=== PATIENT | female | born 1950 | race Caucasian/White ===

== ENCOUNTER → 2017-02-15 | Outpatient (CLI) | payer BC, MEDICARE ==
--- NOTE | 2017-02-15 12:56 | MM ---
Reason for exam: screening (asymptomatic). Baseline mammogram. History: Patient is postmenopausal. Implants in both breasts, 1982. Physical Findings: Nurse Summary: a 2cm nodule in the right breast at 3 o'clock (nurse mm). MG 3D Screen Mammo Imp/Cad Bilateral CC, MLO, and ID view(s) were taken. The breast tissue is heterogeneously dense. This may lower the sensitivity of mammography. Bilateral implants with calcifications of right sided implant shell. Buldge is seen medially felt to reflect silicone leak. These results were verbally communicated with the patient and result sheet given to the patient on 02/15/17. ASSESSMENT: Benign, BI-RAD 2 RECOMMENDATION: Routine screening mammogram of both breasts in 1 year. Manage patient on a clinical basis.
== END | disposition home or self-care (01) ==
LOC: RADMAMWWP 10:56
PROVIDERS: ATTEND Family Medicine
DX: Z12.31 Encounter for screening mammogram for malignant neoplasm of breast (principal)
CPT/HCPCS: 77063; G0202

== ENCOUNTER → 2017-09-05 | Outpatient (CLI) | payer MEDICARE ==
--- NOTE | 2017-09-05 16:06 | BD ---
EXAMINATION TYPE: MG DEXA axial skeleton. DATE OF EXAM: 09/05/2017 COMPARISON: NONE CLINICAL HISTORY: post menopausal Height: 5'6 Weight: 116 FRAX RISK QUESTIONS: Alcohol (3 or more units per day): no Family History (Parent hip fracture): no Glucocorticoids (More than 3mos): no (Ex: prednisone, prednisolone, methylprednisolone, dexamethasone, and hydrocortisone). History of Fracture in Adulthood: no Secondary Osteoporosis: 1. Type 1 Diabetes: no 2. Hyperthyroidism: no 3. Menopause before 45: no 4. Malnutrition: no 5. Chronic liver disease: no Rheumatoid Arthritis: no Current Tobacco Use: no RISK FACTORS HISTORY OF: Active: Diet low in dairy products/other sources of calcium: Postmenopausal woman: MEDICATIONS: Additional Medications: Additional History: EXAM MEASUREMENTS: Bone mineral densitometry was performed using the [facility]. Bone mineral density as measured about the Lumbar spine is: ----- L1-L4(G/cm2): 0.910 T Score Values are as follows: ----- L2: -3.2 ----- L3: -2.5 ----- L4: -1.0 ----- L1-L4: -2.3 Bone mineral density about the R hip (g/cm2): 0.742 Bone mineral density about the L hip (g/cm2): 0.771 T Score values are as follows: -----R Neck: -2.1 -----L Neck: -1.9 -----R Total: -2.3 -----L Total: -1.9 IMPRESSION: Osteopenia (T Score between -2.5 and -1) as noted by T score values:L1-L4,Gm Hips There is slightly increased risk of fracture and the patient may be considered for treatment. Re-Screen 2-5 years. NOTE: T-SCORE=SD OF THE YOUNG ADULT MEAN.
== END | disposition home or self-care (01) ==
LOC: RADBDWWP 14:51
PROVIDERS: ATTEND Family Medicine
DX: M85.89 Other specified disorders of bone density and structure, multiple sites (principal); Z78.0 Asymptomatic menopausal state
CPT/HCPCS: 77080

== ENCOUNTER → 2018-03-04 | Outpatient (CLI) | payer MEDICARE ==
--- NOTE | 2018-03-06 10:37 | MM ---
Reason for exam: screening (asymptomatic). Last mammogram was performed 1 year and 1 month ago. History: Patient is postmenopausal. Implants in both breasts, 1982. Physical Findings: A clinical breast exam by your physician is recommended on an annual basis and results should be correlated with mammographic findings. MG Screening Mammo Implant/CAD Bilateral CC, MLO, and ID view(s) were taken. Prior study comparison: February 15, 2017, bilateral MG 3d screen mammo imp/cad. The breast tissue is extremely dense which could obscure a lesion on mammography. Bilateral breast prothesis. No significant changes when compared with prior studies. ASSESSMENT: Benign, BI-RAD 2 RECOMMENDATION: Routine screening mammogram of both breasts in 1 year.
== END | disposition home or self-care (01) ==
LOC: RADMAMWWP 13:51
PROVIDERS: ATTEND Family Medicine
DX: Z12.31 Encounter for screening mammogram for malignant neoplasm of breast (principal)
CPT/HCPCS: 77067

== ENCOUNTER → 2018-08-13 | Outpatient (CLI) | payer MEDICARE ==
--- NOTE | 2018-08-13 10:43 | ECHOS ---
STRESS ECHOCARDIOGRAM INDICATIONS: Murmur. MEDICATIONS: BP pill BASELINE HEART RATE: 75 BASELINE BLOOD PRESSURE: 109/71 MAXIMUM HEART RATE: 138 MAXIMUM BLOOD PRESSURE: 151/63 85% MPHR: 130 100% MPHR: 153 METS: 12.1 MAXIMUM STAGE REACHED: III TOTAL EXERCISE TIME: 11:01 CLINICAL INFORMATION: Baseline EKG shows sinus rhythm, nonspecific ST-T wave changes. Patient exercised on [place] protocol for a total of 11 minute achieving 12 METS., 90% of predicted maximal heart rate without chest pain or diagnostic ST-segment depression. Baseline echo shows normal left ventricular size wall motion, systolic function. Post exercise there is normal hyperdynamic response of all segments of myocardium noted. CONCLUSION: 1. Excellent exercise tolerance. 2. Inconclusive EKG part of the stress test due to baseline EKG abnormalities. 3. Normal stress echo. MMODL / IJN: [id number] /
== END | disposition home or self-care (01) ==
LOC: RADNMMAIN 08:50
PROVIDERS: ATTEND Family Medicine
DX: R94.31 Abnormal electrocardiogram [ECG] [EKG] (principal); R01.1 Cardiac murmur, unspecified; R53.83 Other fatigue
CPT/HCPCS: 93351

== ENCOUNTER → 2022-09-21 | Outpatient (CLI) | payer MEDICARE ==
[2022-09-21 11:45] VITALS: BP 144/81; PULSE 81; RESP 15; TEMP 97.8
--- NOTE | 2022-09-21 12:07 | P.GSHP ---
History of Present Illness H&P Date: 09/21/22 Chief Complaint: lump left breast Alison is a 71 year old female with a complaint of a lump in her left breast. She had a bilateral mammogram on 07-03-22 which was BIRAD 2. She noted a lump in her left breast 1 week ago. The lump is tender to palpation. She is not complaining of any trauma or infection in her breast. She had bilateral breast implants which are hard [address] Carbajal 09-15-22 reviewed Caffeine: 2 cups coffee/day nicotine: none chocolate: none BCP: 6 months 50 years ago Family History: no cancer Hormonal History: menarche: 16 , breast fed: yes, age at : 27 menopause: 50 hormones: none Surgical Surgery: vascular left leg vein stripping Medical History: HTN paxil for anxiety Social History: nicotine: none alcohol: occasional wine drugs: none - Constitutional Constitutional: Denies chills, Denies fever - EENT Eyes: denies blurred vision, denies pain Ears: deny: decreased hearing, tinnitus Ears, nose, mouth and throat: Reports headache, Denies sore throat - Breasts Breasts: bilateral: as per HPI - Cardiovascular Cardiovascular: Denies chest pain, Denies shortness of breath - Respiratory Respiratory: Denies cough, Denies 7 - Gastrointestinal Gastrointestinal: Denies abdominal pain, Denies diarrhea, Denies nausea, Denies vomiting - Genitourinary (Female) Comment: kidney stone 40 years ago Genitourinary: Denies dysuria, Denies hematuria - Menstruation Menstruation: Reports postmenopausal - Musculoskeletal Musculoskeletal: Denies myalgias - Integumentary Integumentary: Denies pruritus, Denies rash - Neurological Neurological: Denies numbness, Denies weakness - Psychiatric Psychiatric: Reports anxiety, Denies depression - Endocrine Endocrine: Denies fatigue, Denies weight change - Hematologic/Lymphatic Comment: none - Allergic/Immunologic Allergic/Immunologic: Reports as per HPI Past Medical History Past Medical History: Hypertension History of Any Multi-Drug Resistant Organisms: None Reported Additional Past Surgical History / Comment(s): L LEG VASCULAR SUREGERY Past Anesthesia/Blood Transfusion Reactions: No Reported Reaction Past Psychological History: Depression Smoking Status: Never smoker Past Alcohol Use History: Rare Past Drug Use History: None Reported Medications and Allergies Home Medications Medication Instructions Recorded Confirmed Type PARoxetine HCL [Paxil] 10 mg PO HS 09/21/22 09/21/22 History Allergies Allergy/AdvReac Type Severity Reaction Status Date / Time No Known Allergies Allergy Unverified 09/21/22 11:40 Surgical - Exam Vital Signs Temp Pulse Resp BP Pulse Ox 97.8 F 81 15 144/81 95 09/21/22 11:42 09/21/22 11:42 09/21/22 11:42 09/21/22 11:42 09/21/22 11:42 BMI: 19.8 - General no distress - Eyes normal ocular movement - ENT no hearing loss - Neck trachea midline - Respiratory normal respiratory effort - Cardiovascular Rhythm: regular Heart Sounds: normal: S1, S2 - Abdomen Abdomen: soft, non tender, no guarding, no rigid, no rebound - Integumentary normal turgor - Neurologic no disoriented, no combative - Musculoskeletal normal gait - Psychiatric oriented to time, oriented to person, oriented to place, speech is normal, memory intact Breast Exam: BRA: 34D inspection: Bilateral grade 2 ptosis/bilateral breast implants/fullness is identified in both breasts in the medial aspect, on the right side it is soft in the left side it is firm and may be attached to the implant Palpation: Right breast: Implant in place multiple positional exam fullness in the medial aspect of the breast which is soft Right axilla: No adenopathy of concern Left breast: Implant in place, multiple positional exam firmness in nodularity in the medial aspect of the breast which appears to be attached to the implant no other dominant masses or nodules of concern Left axilla: No adenopathy of concern Results Mammogram results reviewed Assessment and Plan Assessment: Impression: HTN paxil for anxiety bilateral breast implants/? rupture/contracture mass left breast Plan: bilateral breast implants ? rupture/contracture needs MRI mass left breast follow up after MRI CC: Dr. Carbajal
== END ==
LOC: WWCWWP 11:35
PROVIDERS: ATTEND Surgery
DX: N63.20 Unspecified lump in the left breast, unspecified quadrant (principal); I10 Essential (primary) hypertension; F41.9 Anxiety disorder, unspecified; Z98.82 Breast implant status

== ENCOUNTER → 2022-09-29 | Outpatient (CLI) | payer MEDICARE ==
--- NOTE | 2022-10-02 07:29 | BMR ---
EXAMINATION TYPE: MR breast BILAT wo/w con DATE OF EXAM: 09/29/2022 COMPARISON: Outside bilateral breast mammogram July 03, 2022 BI-RADS 2 HISTORY: Lump left breast. History of bilateral breast implants 1982. TECHNIQUE: A series of fat and water weighted images in the long and short axis views of both breasts are obtained in conjunction with dynamic contrast MRI with subtraction technique. The patient was i njected with 6 mL intravenous Gadavist gadolinium contrast. Three-dimensional and additional postpr ocessing imaging is created on independent workstation and reviewed during official interpretation of this study. FINDINGS: Extremely dense fibroglandular tissue bilaterally is redemonstrated. Persistent granular bi lateral implants with fairly symmetric size. Some prominent infolding is present bilaterally. There i s lobulated medial inferior extension on the right corresponding to mammogram abnormality. No free si licone evident bilaterally. There are some prominent but benign-appearing bilateral axillary lymph no cesilia being more numerous in the left axilla versus right. No enlarged adenopathy is seen. Dynamic post contrast imaging shows mild background enhancement bilaterally. With regards to the right breast there is diminished T1 and T2 signal anterior medial aspect of the i mplant likely reflecting hemosiderin deposition. There is no pathologic enhancement or abnormal enhan cing masses identified in either breast. Site of palpable abnormality left breast not told on orderin g prescription or technologist notes. No suspicious skin thickening is seen. The chest wall is intact . IMPRESSION: No MRI evidence for invasive malignancy in either breast. Suspect intracapsular rupture o f bilateral breast implants without extracapsular rupture. Bilateral breast implants noted to show sy mmetric volume or size. BI-RADS 2 benign findings right breast BI-RADS 2 benign findings left breast Recommendation: Manage palpable on clinical basis. Advise ultrasound evaluation if true focal palpabl e abnormality persists if has not been performed. Advise annual mammogram surveillance June 2023 to be back on annual schedule.
== END | disposition home or self-care (01) ==
LOC: RADMRIMAIN 11:37
PROVIDERS: ATTEND Surgery
DX: T85.49XA Other mechanical complication of breast prosthesis and implant, initial encounter (principal); N63.24 Unspecified lump in the left breast, lower inner quadrant; Z98.82 Breast implant status
CPT/HCPCS: C8908; A9585; 77049

== ENCOUNTER → 2022-11-03 | Outpatient (CLI) | payer MEDICARE ==
--- NOTE | 2022-11-03 09:35 | P.PN ---
Subjective Progress Note Date: 11/03/22 Alison is a 71 year old female with a complaint of a lump in her left breast. She had a bilateral mammogram on 07-03-22 which was BIRAD 2. She noted a lump in her left breast 1 week ago. The lump is tender to palpation. She is not complaining of any trauma or infection in her breast. She had bilateral breast implants which are hard 40 years ago. She underwent bilateral breast MRI on [id number]. This revealed bilateral intracapsular rupture. She believes these were silicone implants. Caffeine: 2 cups coffee/day nicotine: none chocolate: none BCP: 6 months 50 years ago Family History: no cancer Hormonal History: menarche: 16 , breast fed: yes, age at : 27 menopause: 50 hormones: none Surgical Surgery: vascular left leg vein stripping Medical History: HTN paxil for anxiety Social History: nicotine: none alcohol: occasional wine drugs: none - Constitutional Constitutional: Denies chills, Denies fever - EENT Eyes: denies blurred vision, denies pain Ears: deny: decreased hearing, tinnitus Ears, nose, mouth and throat: Reports headache, Denies sore throat - Breasts Breasts: bilateral: as per HPI - Cardiovascular Cardiovascular: Denies chest pain, Denies shortness of breath - Respiratory Respiratory: Denies cough - Gastrointestinal Gastrointestinal: Denies abdominal pain, Denies diarrhea, Denies nausea, Denies vomiting - Genitourinary (Female) Comment: kidney stone 40 years ago Genitourinary: Denies dysuria, Denies hematuria - Menstruation Menstruation: Reports postmenopausal - Musculoskeletal Musculoskeletal: Denies myalgias - Integumentary Integumentary: Denies pruritus, Denies rash - Neurological Neurological: Denies numbness, Denies weakness - Psychiatric Psychiatric: Reports anxiety, Denies depression - Endocrine Endocrine: Denies fatigue, Denies weight change - Hematologic/Lymphatic Comment: none - Allergic/Immunologic Allergic/Immunologic: Reports as per HPI Past Medical History Past Medical History: Hypertension History of Any Multi-Drug Resistant Organisms: None Reported Additional Past Surgical History / Comment(s): L LEG VASCULAR SUREGERY Past Anesthesia/Blood Transfusion Reactions: No Reported Reaction Past Psychological History: Depression Smoking Status: Never smoker Past Alcohol Use History: Rare Past Drug Use History: None Reported Medications and Allergies Home Medications Medication Instructions Recorded Confirmed Type PARoxetine HCL [Paxil] 10 mg PO HS 09/21/22 09/21/22 History Allergies Allergy/AdvReac Type Severity Reaction Status Date / Time No Known Allergies Allergy Unverified 09/21/22 11:40 Objective - Constitutional General appearance: Present: cooperative - EENT Eyes: Present: EOMI ENT: Present: hearing grossly normal - Neck Neck: Present: normal ROM - Respiratory Respiratory: bilateral: CTA - Cardiovascular Rhythm: regular Heart sounds: normal: S1, S2 - Gastrointestinal General gastrointestinal: Present: soft - Integumentary Integumentary: Present: normal turgor - Musculoskeletal Musculoskeletal: Present: gait normal - Psychiatric Psychiatric: Present: A&O x's 3, appropriate affect, intact judgment & insight - Additional findings Additional findings: Breast Exam: BRA: 34D inspection: Bilateral grade 2 ptosis/bilateral breast implants/fullness is identified in both breasts in the medial aspect, on the right side it is soft in the left side it is firm and may be attached to the implant Palpation: Right breast: Implant in place multi-positional exam fullness in the medial aspect of the breast which is soft Right axilla: No adenopathy of concern Left breast: Implant in place, multi-positional exam firmness in nodularity in the medial aspect of the breast which appears to be attached to the implant no other dominant masses or nodules of concern Left axilla: No adenopathy of concern Assessment and Plan Assessment: Impression: HTN paxil for anxiety bilateral breast implants/? rupture/contracture mass left breast MRI bilateral implain intracapsular rupture Plan: Bilateral breast implants Removal bilateral capsules breast implants Removal mass left breast The patient is given a prescription for [place] for pain medicine, she is signed to be opioid start talking form. CC: Dr. Carbajal
[2022-11-03 12:03] VITALS: BP 138/88; PULSE 68; RESP 17; TEMP 97.9
== END ==
LOC: WWCWWP 09:00
PROVIDERS: ATTEND Surgery
DX: N63.20 Unspecified lump in the left breast, unspecified quadrant (principal); I10 Essential (primary) hypertension; F41.9 Anxiety disorder, unspecified

== ENCOUNTER 2022-12-26 07:02 | Day surgery (SDC) | payer MEDICARE ==
[~2022-12-26 07:02] MED LIST: HEPARIN SODIUM,PORCINE/PF 5,000 UNIT/0.5 ML SYRINGE SQ PRN; HYDROmorphone 0.5 MG/0.5 ML SYRINGE IVP PRN; LACTATED RINGERS 1,000 ML IV SCH; LIDOCAINE 1% (10MG/ML) FOR IV START INTRADERMA PRN; ONDANSETRON 4 MG/2 ML VIAL IVP ONE; Pre Op ABX Message 1 EACH MISC MISCELLANE ONE
[2022-12-26] MEDS ORDERED: LIDOCAINE 2% INJ 20 MG/ML (2 ML VIAL) ONE (07:35)
[2022-12-26] MEDS ORDERED: PROPOFOL 10 MG/ML 20 ML VIAL IV ONE (07:35)
[2022-12-26] MEDS ORDERED: fentaNYL (PF) 50 MCG/ML 2 ML AMP ONE (07:35)
[2022-12-26] MEDS ORDERED: ePHEDrine 50 MG/ML 1 ML VIAL ONE (07:35)
[2022-12-26] MEDS ORDERED: MIDAZOLAM 2 MG/2 ML VIAL ONE (07:35)
[2022-12-26] MEDS ORDERED: DEXAMETHASONE SOD PHOSPHATE 4 MG/ML 1 ML VIAL IV ONE (07:50)
[2022-12-26] MEDS ORDERED: SODIUM CHLORIDE 0.9% 50 ML with ceFAZolin 2,000 MG IV ONE ×2 (09:04)
[2022-12-26] MEDS ORDERED: LACTATED RINGERS 1,000 ML IV ONE (10:49)
--- NOTE | 2022-12-26 11:19 | P.OP ---
Date of Procedure: 12/26/22 Preoperative Diagnosis: Bilateral ruptured breast implants with mass left breast Postoperative Diagnosis: Same Procedure(s) Performed: Bilateral implant removal, bilateral capsulectomy, removal of mass left breast Anesthesia: MIGUEL Surgeon: Massiel Young Estimated Blood Loss (ml): 20 IV fluids (ml): 900 Pathology: other (Bilateral breast implants and capsules as well as nodular area) Condition: stable Disposition: same day Indications for Procedure: Bilateral ruptured breast implants and mass left breast Operative Findings: Bilateral ruptured breast implants, mass left breast Description of Procedure: the patient was taken to the operating room and following induction of anesthesia the right and left breast were prepped and draped in a sterile fashion. The left breast was approached initially. An incision was made and carried down through the skin and subcutaneous tissue. It was carried through the breast parenchyma to the area of the capsule of the implant on the left. This was firm and careful dissection was performed around the capsule. The medial aspect of the breast there was a palpable mass which appeared to be attached to the implant. It appeared that this may be a slight area of rupture of the implant which had encapsulated. This was removed with the specimen. Careful dissection was performed all along the capsule as well as onto the chest wall removing the implant and the capsule. After assured that hemostasis was attained the wound was well irrigated. A #10 JING drain was placed. The incision was closed in layers using 3-0 Vicryl suture followed by a 4-0 Monocryl in a nylon skin suture. The drain was secured using a nylon suture. The area of the right breast was then approached. Careful dissection was performed through the skin and subcutaneous tissue after incision was made. It was carried through the breast parenchyma to the area of the capsule of the implant on the right. The capsule was firm and careful dissection was performed around the capsule. There appeared to be several areas where the implant seemed to have a small rupture with increased inflammation at those sites. These were removed with the implant. After assured that hemostasis was attained the wound was well irrigated. A #10 JING drain was placed. The incision was closed in layers using 3-0 Vicryl suture followed by 4-0 Monocryl and a nylon skin suture. The drain was secured using a nylon suture. The patient tolerated the procedure in stable condition. All instrument and sponge counts were correct at the end of the case.
--- NOTE | 2022-12-26 11:22 | P.DS ---
Providers Attending physician: Massiel Young Primary care physician: Shaq Carbajal Plan - Discharge Summary Discharge Rx Participant: No New Discharge Prescriptions: No Action PARoxetine HCL [Paxil] 10 mg PO HS HYDROcodone/APAP 5-325MG [[place] 5] 1 - 2 each PO Q4H PRN #20 tab PRN Reason: Pain Rosuvastatin Calcium 20 mg PO HS Losartan Potassium 100 mg PO DAILY Discharge Medication List PARoxetine HCL [Paxil] 10 mg PO HS 09/21/22 [History] HYDROcodone/APAP 5-325MG [[place] 5] 1 - 2 each PO Q4H PRN #20 tab 11/03/22 [Rx] Losartan Potassium 100 mg PO DAILY 12/19/22 [History] Rosuvastatin Calcium 20 mg PO HS 12/19/22 [History] Follow up Appointment(s)/Referral(s): Massiel Young MD [STAFF PHYSICIAN] - 01/04/23 4:00 pm Activity/Diet/Wound Care/Special Instructions: NOTE TO DISCHARGING NURSE: PATIENT ALREADY HAS HER SCRIPT FOR [place] FILLED AND AT HOME. Teac patient drain care, drainage and recorded BID and as needed Do not drive if taking narcotic pain medicine for at least 24 hours after discharge May shower after 48 hours Discharge Disposition: HOME SELF-CARE
[2022-12-26 11:35] VITALS: TEMP 97.6
[2022-12-26 12:23] VITALS: RESP 16
[2022-12-26 12:51] VITALS: BP 128/75
[2022-12-26 13:11] VITALS: PULSE 89
== END 2022-12-26 13:48 | disposition home or self-care (01) ==
LOC: OR 07:02
PROVIDERS: ATTEND Surgery
DX: T85.49XA Other mechanical complication of breast prosthesis and implant, initial encounter (principal); I10 Essential (primary) hypertension; E78.5 Hyperlipidemia, unspecified; F32.A Depression, unspecified; Z79.899 Other long term (current) drug therapy
CPT/HCPCS: 19330; 88305; J2250; J1100; J2405; J0690; J3010; J2704; J1170; J1644; J2001

== ENCOUNTER → 2022-12-28 | Outpatient (CLI) | payer MEDICARE ==
[2022-12-28 16:30] VITALS: BP 151/84; PULSE 84; RESP 17; TEMP 97.9
--- NOTE | 2022-12-28 16:41 | P.PN ---
Progress Note - Text Progress Note Date: 12/28/22 Alison is a 72 year old white female status post removal of bilateral ruptured implants. Pathology showed calcified capsules. She is doing well but did have some drainage around her JING drains and comes in for evaluation. Examination: Incisions bilateral clean and dry Right breast appears to be slightly smaller than the left breast. The drain sites are clean and dry the drains are stripped the right drain had approximately 15 mL and at the left drain had minimal fluid in it at this time Impression: Patient doing well at this time Plan: Follow up next week for most likely drain removal and suture removal CC: Dr. Carbajal
== END ==
LOC: WWCWWP 16:07
PROVIDERS: ATTEND Surgery
DX: Z98.82 Breast implant status (principal)

== ENCOUNTER → 2023-01-02 | Outpatient (CLI) | payer MEDICARE ==
--- NOTE | 2023-01-02 12:04 | P.PN ---
Progress Note - Text Progress Note Date: 01/02/23 Alison is a 72 year old white female status post removal of bilateral ruptured implants. Pathology showed calcified capsules. She is doing well but did have some drainage around the JING drains which has subsided. The JING output is minimal bilaterally at this time. Examination: Incisions bilateral clean and dry Right breast appears to be slightly smaller than the left breast. Impression: Patient doing well at this time Plan: Follow up later this week for suture removal CC: Dr. Carbajal Additional CC's: Shaq Carbajal
== END ==
LOC: WWCWWP 11:47
PROVIDERS: ATTEND Surgery
DX: Z04.9 Encounter for examination and observation for unspecified reason (principal)

== ENCOUNTER → 2023-01-04 | Outpatient (CLI) | payer MEDICARE ==
--- NOTE | 2023-01-04 15:06 | P.PN ---
Progress Note - Text Progress Note Date: 01/04/23 Alison is a 72 year old white female status post removal of bilateral ruptured implants. Pathology showed calcified capsules. She is doing well but did have some drainage around the JING drains which has subsided. The JING have been removed. Examination: Incisions bilateral clean and dry Right breast appears to be slightly smaller than the left breast. Impression: Patient doing well at this time Plan: Lateral suture removal Follow-up 6 months with bilateral mammogram CC: Dr. Carbajal Additional CC's: Shaq Carbajal
== END ==
LOC: WWCWWP 13:55
PROVIDERS: ATTEND Surgery
DX: Z85.3 Personal history of malignant neoplasm of breast (principal)

== ENCOUNTER → 2023-10-25 | Outpatient (CLI) | payer MEDICARE ==
--- NOTE | 2023-10-25 13:17 | MM ---
Reason for Exam: Follow-up at short interval from prior study. Last mammogram was performed 5 year(s) and 8 month(s) ago. Patient History: Menarche at age 17. First Full-Term at age 27. Postmenopausal. 2022, Bilateral Implant Removal. 1982, Bilateral Implants. Risk Values: Tamela 5 year model risk: 1.8%. NCI Lifetime model risk: 4.6%. Tissue Density: The breast tissue is heterogeneously dense. This may lower the sensitivity of mammography. Findings: Analyzed By CAD. Patient's breast prostheses been removed. There are multiple areas of increased density within the medial aspect right breast could be related to dystrophic calcification or from a leaking silicone prosthesis. Findings was present previous surgery. No suspicious groups of microcalcifications, spiculated or lobular masses, architectural distortion or other secondary signs of malignancy are mammographically apparent. Overall Assessment: Benign, BI-RAD 2 Management: Screening Mammogram of both breasts in 1 year. A negative mammogram report should not preclude additional follow up of suspicious palpable abnormalities. Patient should continue monthly self breast exam. A clinical breast exam by your physician is recommended on an annual basis and results should be correlated with mammographic findings. Electronically signed and approved by: Malachi Perez D.O. Radiologis
== END | disposition home or self-care (01) ==
LOC: RADMAMWWP 12:47
PROVIDERS: ATTEND Surgery
DX: R92.333 Mammographic heterogeneous density, bilateral breasts (principal); Z78.0 Asymptomatic menopausal state; Z98.82 Breast implant status
CPT/HCPCS: 77066; G0279; 77062

== ENCOUNTER → 2023-11-01 | Outpatient (CLI) | payer MEDICARE ==
[2023-11-01 14:39] VITALS: BP 174/83; PULSE 77; RESP 16; TEMP 97.8
--- NOTE | 2023-11-01 14:45 | P.PN ---
Subjective Progress Note Date: 11/01/23 Principal diagnosis: fibrocystic breast changes bilateral breast implant rupture Alison is a 72 year old female with a complaint of a lump in her left breast. She had a bilateral mammogram on 07-03-22 which was BIRAD 2. She noted a lump in her left breast 1 week ago. The lump is tender to palpation. She is not complaining of any trauma or infection in her breast. She had bilateral breast implants which are hard 40 years ago. She underwent bilateral breast MRI on [id number]. This revealed bilateral intracapsular rupture. She believes these were silicone implants. She underwent removal of bilateral implants on 12-26-22. Post procedure she has done well. Her last mammogram was on 10-25-23 and was BIRAD 2. She is not concerned about any new lumps masses or nodules of concern in either breast. Caffeine: 2 cups coffee/day nicotine: none chocolate: none BCP: 6 months 50 years ago Family History: no cancer Hormonal History: menarche: 16 , breast fed: yes, age at : 27 menopause: 50 hormones: none Surgical Surgery: vascular left leg vein stripping removal of bilateral breast implants Medical History: HTN paxil for anxiety Social History: nicotine: none alcohol: occasional wine drugs: none - Constitutional Constitutional: Denies chills, Denies fever - EENT Eyes: denies blurred vision, denies pain Ears: deny: decreased hearing, tinnitus Ears, nose, mouth and throat: Reports headache, Denies sore throat - Breasts Breasts: bilateral: as per HPI - Cardiovascular Cardiovascular: Denies chest pain, Denies shortness of breath - Respiratory Respiratory: Denies cough - Gastrointestinal Gastrointestinal: Denies abdominal pain, Denies diarrhea, Denies nausea, Denies vomiting - Genitourinary (Female) Comment: kidney stone 40 years ago Genitourinary: Denies dysuria, Denies hematuria - Menstruation Menstruation: Reports postmenopausal - Musculoskeletal Musculoskeletal: Denies myalgias - Integumentary Integumentary: Denies pruritus, Denies rash - Neurological Neurological: Denies numbness, Denies weakness - Psychiatric Psychiatric: Reports anxiety, Denies depression - Endocrine Endocrine: Denies fatigue, Denies weight change - Hematologic/Lymphatic Comment: none - Allergic/Immunologic Allergic/Immunologic: Reports as per HPI Past Medical History Past Medical History: Hypertension History of Any Multi-Drug Resistant Organisms: None Reported Additional Past Surgical History / Comment(s): L LEG VASCULAR SUREGERY Past Anesthesia/Blood Transfusion Reactions: No Reported Reaction Past Psychological History: Depression Smoking Status: Never smoker Past Alcohol Use History: Rare Past Drug Use History: None Reported Medications and Allergies Home Medications Medication Instructions Recorded Confirmed Type PARoxetine HCL [Paxil] 10 mg PO HS 09/21/22 09/21/22 History Allergies Allergy/AdvReac Type Severity Reaction Status Date / Time No Known Allergies Allergy Unverified 09/21/22 11:40 Objective - Vital Signs Vital signs: Vital Signs Temp 97.8 F 11/01/23 14:28 Pulse 77 11/01/23 14:28 Resp 16 11/01/23 14:28 BP 174/83 11/01/23 14:28 Pulse Ox 96 11/01/23 14:28 FiO2 Intake & Output 10/31/23 11/01/23 11/01/23 18:59 06:59 18:59 Weight 61.235 kg - Constitutional General appearance: Present: cooperative - EENT Eyes: Present: EOMI ENT: Present: hearing grossly normal - Neck Neck: Present: normal ROM - Respiratory Respiratory: bilateral: CTA - Cardiovascular Heart sounds: normal: S1, S2 - Gastrointestinal General gastrointestinal: Present: soft - Integumentary Integumentary: Present: normal turgor - Musculoskeletal Musculoskeletal: Present: gait normal - Psychiatric Psychiatric: Present: A&O x's 3, appropriate affect, intact judgment & insight - Additional findings Additional findings: Breast Exam: BRA: 32A down from a 34 D inspection: Bilateral grade 2/3 ptosis; well healed scars bilateral breast Right breast: multi-positionsl exam, no dominate masses of conceern Right axilla: No adenopathy of concern Left breast: multi-positional exam no dominate masses of concern Left axilla: No adenopathy of concern Assessment and Plan Assessment: Impression: Cystic breast changes status post removal of bilateral breast implants Plan: Bilateral mammogram 1 year Follow-up examination 1 year Patient to follow up sooner any questions or concerns CC: / Solomon
== END ==
LOC: WWCWWP 14:10
PROVIDERS: ATTEND Surgery
DX: N60.12 Diffuse cystic mastopathy of left breast (principal); I10 Essential (primary) hypertension; F41.9 Anxiety disorder, unspecified; T85.49XA Other mechanical complication of breast prosthesis and implant, initial encounter